=== PATIENT | female | born 1945 | race Caucasian/White ===

== ENCOUNTER 2017-11-11 15:06 | Emergency (ER) | payer MEDICARE, OTHER ==
[2017-11-11] MEDS ORDERED: DIPH,PERTUSS(ACELL),TET VAC/PF 0.5 ML DISP.SYRIN IM ONE (15:20)
[2017-11-11] MEDS ORDERED: Lidocaine 1% 5ml(IM or SUTURE)(PAIN CLINIC) IJ ONE (15:22)
[2017-11-11] MEDS ORDERED: cefTRIAXone SODIUM 1 GM in 0.9 % SODIUM CHLORIDE 50 ML IV ONE (15:57)
[2017-11-11] MEDS ORDERED: cefTRIAXone SODIUM 1 GM VIAL ONE (16:04)
--- NOTE | 2017-11-11 16:26 | ED Physician Documentation ---
Upper Extremity Injury - HISTORIAN Historian: patient - HPI Stated Complaint: finger laceration Chief Complaint: Upper Extremity Injury Onset: just prior to arrival Where: home Severity: severe Context: blow Further Comments: yes (72 year old female patient presents after smashing bilateral middle fingers in aluminum window frame. C/O laceration to left middle finger; pain. Right with abrasion and pain. States she washed both fingers and poured alcohol in the laceration. Last tetanus 6 years ago.) - ROS CONST: no problems CVS/RESP: none NEURO: none MS/SKIN/LYMPH: none GI/: denies: nausea, vomiting - PAST HX Past History: Rt handed, other (hypothyriodism) Allergies/Adverse Reactions: Allergies Allergy/AdvReac Type Severity Reaction Status Date / Time codeine Allergy Verified 11/11/17 15:48 morphine AdvReac Unknown Itchy Skin Verified 11/11/17 15:48 Home Medications: Ambulatory Orders Medication Instructions Recorded Aspirin [Brian] 81 mg PO DAILY 11/11/17 Cephalexin [Keflex] 500 mg PO QID #40 capsule 11/11/17 Levothyroxine Sodium [Synthroid] 25 mcg PO 0700 11/11/17 Mupirocin [Bactroban] 1 appl TP BID #1 tube 11/11/17 - SOCIAL HX Smoking History: non-smoker - FAMILY HX Family History: none - VITAL SIGNS Vital Signs: Vital Signs Temp Pulse Resp BP Pulse Ox 97.5 F L 72 14 134/62 99 11/11/17 15:09 11/11/17 16:47 11/11/17 16:47 11/11/17 16:47 11/11/17 15:09 - REVIEWED ASSESSMENTS Nursing Assessment Reviewed: Yes Vitals Reviewed: Yes Procedures Wound Location: upper extremity (left 3rd digit) Wound's Depth, Shape: linear Wound Explored: no foreign body removed Irrigated w/ Saline (ccs): 1,000 Betadine Prep?: No (chlorhexidine) Anesthesia: 1% Lidocaine Volume of Anesthetic: 8 Wound Repaired With: sutures Suture Size/Type: 5:0 Number of Sutures: 3 Sterile Dressing Applied?: Yes Splint Applied?: Yes Progress: Digital block with 1% lidocaine Wash out with 1000cc NS; 1 G rocephin given in ER. Laceration repaired with 5.0 ethilon x 3 stitches. ZIA and dressing applied. Splint to finger. Progress - Progress Progress: 1600 Call to ortho; transfered to clinic to make appointment. Clinic will call with follow up appointment tomorrow. Reviewed discharge instructions with patient, questions answered. Encourage patient to have close follow up with ortho. 1720 Call from [place] - updated on patient treatment, will call patient for appointment tomorrow. ED Results Lab/Radiology - Radiology Radiology Impressions: Examination: Plain right finger History: PT C/O PAIN TO BILATERAL THIRD DIGITS AFTER CRUSHING THE DISTAL PARTS IN A WINDOW. (Hx) Comparison exams: None available Findings: 3 views the right 3rd digit demonstrates articular degenerative changes. Avulsion involving the distal margin of the mid phalanx. No soft tissue abnormality. Impression: Avulsion off the distal margin missed phalanx - possibly old. Correlate with location of patient's discomfort. Articular degenerative changes. Electronically signed on Nov 11, 2017 3:59:01 PM CDT by: Art Hill Examination: Plain left finger History: PT C/O PAIN TO BILATERAL THIRD DIGITS AFTER CRUSHING THE DISTAL PARTS IN A WINDOW. (Hx) Comparison exams: None available Findings: 3 views the left 3rd digit demonstrates cortical lucencies involving the tuft region of the 3rd digit. Articular degenerative changes. No soft tissue abnormality. Impression: Tuft fracture 3rd digit. Electronically signed on Nov 11, 2017 3:55:37 PM CDT by: Art Hill - Orders Orders: ED Orders Category Date Time Status Place IV Lock 1T Care 11/11/17 15:56 Active FINGER 2 VIEWS OR MORE [RAD] Stat Exams 11/11/17 Completed FINGER 2 VIEWS OR MORE [RAD] Stat Exams 11/11/17 Completed Diph,Pertuss(Acell),Tet Vac/Pf [Adacel] Med 11/11/17 15:20 Discontinued 0.5 ml IM .ONCE ONE Lidocaine 1% 5ml(IM or SUTURE) [Xylocaine] Med 11/11/17 15:22 Discontinued 100 mg IJ NOW ONE cefTRIAXone SODIUM [Rocephin] Med 11/11/17 16:04 Discontinued 1 gm .ROUTE .STK-MED ONE cefTRIAXone SODIUM [Rocephin] 1 gm Med 11/11/17 15:57 Discontinued 0.9 % Sodium Chloride [Sodium Chloride] 50 ml IV NOW Upper Extremity Injury Physic - Physical Exam General Appearance: moderate distress Hand: abrasions (right middle finger; distal tip), laceration (left 3rd digit - 3 cm laceration over dorsal aspect of DIP joint into nail bed. No tendon visualized, cannot completely flex DIP joint; c/o pain with flexion. ), nail injury Wrist: normal inspection, non-tender, no evidence of injury, normal ROM Elbow/Forearm: normal inspection, non-tender, no evidence of injury, normal ROM Neuro/Vascular/Tendon: no vascular compromise, motor nml, sensation nml, ROM nml (left middle finger with decreased flexion of DIP joint) Skin: warm,dry Resp/CVS: chest non-tender, breath sounds nml, heart sounds nml, no resp. distress, lungs clear, reg. rate & rhythm Discharge Clincal Impression: Open fracture of tuft of distal phalanx of finger Fracture, finger, distal phalanx Qualifiers: Encounter type: initial encounter Finger: middle finger Fracture type: closed Fracture alignment: nondisplaced Laterality: right Qualified Code(s): S62.662A - Nondisplaced fracture of distal phalanx of right middle finger, initial encounter for closed fracture Laceration of left middle finger Qualifiers: Encounter type: initial encounter Damage to nail status: with damage Foreign body presence: without foreign body Qualified Code(s): S61.313A - Laceration without foreign body of left middle finger with damage to nail, initial encounter Prescriptions: Cephalexin [Keflex] 500 mg PO QID #40 capsule Mupirocin [Bactroban] 1 appl TP BID #1 tube Referrals: Mary Brown MD [Primary Care Provider] - 2 Days Additional Instructions: Keep the wound clean and dry until it has healed. You can wash or shower after 24 hours. Do not soak the wound in water and make sure it is dry afterwards (gently pat the area dry with a clean towel). Do not get into a swimming pool, hot tub, gutierrez or river until your stitches are removed. To remove your dressing, gently pull it off. If needed, you can dampen it with water then gently pull it off. Clean the laceration twice a day with hibiclens and rinse with water clean away any scabbed area Apply thin coat of antibiotic ointment after cleaning the wound. Cover with non-adherent bandage if able. REAPPLY YOUR SPLINT after dressing changes. If you have pain, take simple pain relief medication such as Tylenol or ibuprofen. If bandages or dressings get wet, they will need to be changed. Call your doctor for any signs of symptom of infection redness, drainage, pain. Have your stitches removed at your doctors office in 7-10 days. end user support specialist your antibiotic and start it today. [facility] will call you tomorrow with an appointment time. If you have not had a call by noon; call [phone]. Take your disc and reports to the appointment. Condition: Stable Disposition: 01 HOME, SELF-CARE Decision to Admit: NO Decision Time: 16:32
--- NOTE | 2017-11-11 16:46 | Diagnostic Imaging Report ---
MONICA ZUNIGA (INDUSTRIAL RENDERER) - ER [facility] [id number] [facility] [address] [address] Report Submission Date: Nov 11, 2017 3:59:01 PM CDT Patient Study Name: TORSTEN PAPPAS Date: Nov 11, 2017 3:31:33 PM CDT Modality Type: DX Gender: F Description: UPPER EXTREMITY : 41 Institution: [facility] Physician: MONICA ZUNIGA ([place]) - ER Examination: Plain right finger History: PT C/O PAIN TO BILATERAL THIRD DIGITS AFTER CRUSHING THE DISTAL PARTS IN A WINDOW. (Hx) Comparison exams: None available Findings: 3 views the right 3rd digit demonstrates articular degenerative changes. Avulsion involving the distal margin of the mid phalanx. No soft tissue abnormality. Impression: Avulsion off the distal margin missed phalanx - possibly old. Correlate with location of patient's discomfort. Articular degenerative changes. Electronically signed on Nov 11, 2017 3:59:01 PM CDT by: Art HERNANDEZ
--- NOTE | 2017-11-11 16:47 | Diagnostic Imaging Report ---
MONICA ZUNIGA (CORRECTIONAL OFFICER [employer]IEUTENANT) - ER [facility] [id number] [facility] [address] [address] Report Submission Date: Nov 11, 2017 3:55:37 PM CDT Patient Study Name: TORSTEN PAPPAS Date: Nov 11, 2017 3:27:08 PM CDT Modality Type: DX Gender: F Description: UPPER EXTREMITY : 41 Institution: [facility] Physician: MONICA ZUNIGA (CORRECTIONAL OFFICER [employer]) - ER Examination: Plain left finger History: PT C/O PAIN TO BILATERAL THIRD DIGITS AFTER CRUSHING THE DISTAL PARTS IN A WINDOW. (Hx) Comparison exams: None available Findings: 3 views the left 3rd digit demonstrates cortical lucencies involving the tuft region of the 3rd digit. Articular degenerative changes. No soft tissue abnormality. Impression: Tuft fracture 3rd digit. Electronically signed on Nov 11, 2017 3:55:37 PM CDT by: Art HERNANDEZ
[2017-11-11 16:49] VITALS: BP 134/62
== END 2017-11-11 16:43 | disposition home or self-care (01) ==
LOC: ED 15:06
DX: S62.662A Nondisplaced fracture of distal phalanx of right middle finger, initial encounter for closed fracture (principal); X58.XXXA Exposure to other specified factors, initial encounter; Y93.89 Activity, other specified; Y92.009 Unspecified place in unspecified non-institutional (private) residence as the place of occurrence of the external cause
CPT/HCPCS: 73140; 90715; J0696; 90471; 96365; 99283; S1016

== ENCOUNTER 2018-01-22 16:03 | Outpatient (CLI) | payer MEDICARE, OTHER | END 2018-01-22 16:05 | LOC: LABRHC 16:03 | PROVIDERS: ATTEND Physician Assistant | DX: R30.0 Dysuria (principal) | CPT/HCPCS: 87086 ==

== ENCOUNTER 2018-09-29 11:15 | Outpatient (CLI) | payer MEDICARE, OTHER ==
[2018-05-01 11:33] VITALS: BP 134/62
== END 2018-09-29 11:17 ==
LOC: LABRHC 11:15
PROVIDERS: ATTEND Nurse Practitioner Family
DX: N30.00 Acute cystitis without hematuria (principal); B95.2 Enterococcus as the cause of diseases classified elsewhere
CPT/HCPCS: 87086

== ENCOUNTER 2019-03-30 13:58 | Outpatient (CLI) | payer MEDICARE, OTHER ==
[2018-05-01 11:33] VITALS: BP 134/62
== END 2019-03-30 14:00 ==
LOC: LABRHC 13:58
PROVIDERS: ATTEND Family Medicine
DX: R30.0 Dysuria (principal)
CPT/HCPCS: 87086